=== PATIENT | female | born 1980 | race Caucasian/White ===

== ENCOUNTER → 2020-03-02 11:45 | Outpatient (CLI) | payer OTHER, MEDICAID, SELFPAY ==
[2020-03-02 10:33] VITALS: BMI 25.2
[2020-03-02 12:03] LABS: Absolute Lymphocyte Count 1.51 X10^3/uL (0.83-4.51); Absolute Neutrophil Count 9.5 X10^3/uL (2.0-7.7); Basophil# 0.02 X10^3/uL; Basophil% 0.2 % (0-1); Eosinophil# 0.07 X10^3/uL; Eosinophils% 0.6 % (0-5); Hematocrit 39.9 % (37-47); Hemoglobin 13.8 g/dL (12.0-15.0); Lymphocyte # 1.51 X10^3/ul (4.0); Lymphocyte % 12.9 % (19-41); Mean Corp Hgb Conc 34.6 g/dL (32-36); Mean Corpuscular Hgb 32.4 pg (27.0-32.0); Mean Corpuscular Volume 93.7 fL (81-99); Mean Platelet Vol. 9.9 fl (6.2-12.0); Monocyte# 0.59 X10^3/uL; NRBC Flagged by Analyzer 0 % (0-5); Neutrophil # 9.51 X10^3/uL (2.7-7.7); Platelet Count 258 K/mm3 (150-450); RBC Distribution Width CV 12.2 % (11.6-14.6); RBC Distribution Width SD 42.3 fl (35.1-43.9); Red Blood Count 4.26 M/mm3 (4.2-5.4); White Blood Count 11.7 K/mm3 (4.4-11.0)
[2020-03-02 12:56] LABS: HIV - WCH Non-Reactive (Nonreactive); Hepatitis B Surface Antigen Non-Reactive (Nonreactive); Hepatitis C Antibody Non-Reactive (Nonreactive); Rubella IgG 268.2 IU/mL
[2020-03-02 14:17] LABS: Amphetamine Urine VISTA NEGATIVE (<1000 ng/mL); Barbiturate Urine VISTA NEGATIVE (< 200 ng/mL); Benzodiazepine Urine VISTA NEGATIVE (< 200 ng/mL); Cocaine Urine VISTA NEGATIVE (< 300 ng/mL); Ecstacy Urine VISTA NEGATIVE (< 500 ng/mL); Methadone Urine VISTA NEGATIVE (< 300 ng/mL); PCP Urine VISTA NEGATIVE (< 25 ng/mL); THC Urine VISTA NEGATIVE (< 50 ng/mL); Vista UDS pH Range 7
[2020-03-06 07:44] LABS: Chlamydia By Nucleic Acid AMP Negative (Negative)
[2020-03-06 08:03] LABS: Gonococcus By Nucleic Acid AMP Negative (Negative)
[2020-03-07 04:42] LABS: HPV APTIMA, High Risk Negative (Negative)
[2020-03-08 01:46] LABS: Rapid Plasmin Reagin (RPR) NONREACTIVE (NONREACTIVE)
== END ==
PROVIDERS: PCP Nurse Practitioner Family; Referring Provider Obstetrics & Gynecology; Visit Provider Obstetrics & Gynecology
DX: O09.90 Supervision of high risk pregnancy, unspecified, unspecified trimester (principal); Z3A.00 Weeks of gestation of pregnancy not specified; Z12.4 Encounter for screening for malignant neoplasm of cervix
CPT/HCPCS: 36415; 80307; 85025; 86592; 86703; 86762; 86803; 86850; 86900; 86901; 87086; 87088; 87340; 87491; 87591; 87624; 88175; G0145

== ENCOUNTER → 2020-03-30 11:50 | Outpatient (CLI) | payer OTHER, MEDICAID, SELFPAY ==
[2020-03-30 11:05] VITALS: BMI 26.2
== END ==
PROVIDERS: PCP Nurse Practitioner Family; Referring Provider Obstetrics & Gynecology; Visit Provider Obstetrics & Gynecology
DX: O09.512 Supervision of elderly primigravida, second trimester (principal); Z3A.00 Weeks of gestation of pregnancy not specified
CPT/HCPCS: 36415

== ENCOUNTER → 2020-06-22 10:16 | Outpatient (CLI) | payer OTHER, MEDICAID, SELFPAY ==
[2020-05-24 11:23] VITALS: BMI 29.4
[2020-06-22 10:39] LABS: Absolute Lymphocyte Count 1.58 X10^3/uL (0.83-4.51); Absolute Neutrophil Count 9.2 X10^3/uL (2.0-7.7); Basophil# 0.02 X10^3/uL; Basophil% 0.2 % (0-1); Eosinophil# 0.11 X10^3/uL; Eosinophils% 0.9 % (0-5); Hematocrit 37.1 % (37-47); Hemoglobin 12.6 g/dL (12.0-15.0); Lymphocyte # 1.58 X10^3/ul (4.0); Lymphocyte % 13.3 % (19-41); Mean Corpuscular Hgb 32.6 pg (27.0-32.0); Mean Corpuscular Volume 96.1 fL (81-99); Mean Platelet Vol. 10.5 fl (6.2-12.0); Monocyte# 0.88 X10^3/uL; Monocyte% 7.4 % (0-10); NRBC Flagged by Analyzer 0 % (0-5); Neutrophil # 9.24 X10^3/uL (2.7-7.7); Neutrophil % 77.4 % (47-70); Platelet Count 197 K/mm3 (150-450); RBC Distribution Width CV 12.7 % (11.6-14.6); RBC Distribution Width SD 44.4 fl (35.1-43.9); Red Blood Count 3.86 M/mm3 (4.2-5.4); White Blood Count 11.9 K/mm3 (4.4-11.0)
[2020-06-22 10:54] LABS: Glucose Challenge Gest 1H 50g 81 mg/dL (70-140)
== END ==
PROVIDERS: Obstetrics & Gynecology; Referring Provider Obstetrics & Gynecology; Visit Provider Obstetrics & Gynecology
DX: O09.90 Supervision of high risk pregnancy, unspecified, unspecified trimester (principal); Z3A.00 Weeks of gestation of pregnancy not specified; Z13.1 Encounter for screening for diabetes mellitus
CPT/HCPCS: 36415; 82950; 85025

== ENCOUNTER → 2020-08-15 09:31 | Outpatient (CLI) | payer OTHER, MEDICAID, SELFPAY ==
[2020-08-03 11:02] VITALS: BMI 31.7
--- NOTE | 2020-08-15 09:36 | US_ITS ---
STUDY: SECOND AND THIRD TRIMESTER OBSTETRICAL ULTRASOUND - LIMITED REASON FOR EXAM: Female, 40 years old growth. Advanced maternal age. LMP: 12/10/2019. PRIOR ULTRASOUND: None. TECHNIQUE: Transabdominal TECHNICAL QUALITY: Adequate. FINDINGS: There is a single intrauterine fetus. The fetus is in a cephalic presentation. There is demonstrated cardiac activity with a heart rate of 140 bpm. There is a normal amniotic fluid volume. The largest amniotic fluid pocket measures 3.8 cm. The amniotic fluid index (MARY ANNE) is 8.3 cm. Decreased amniotic fluid. The placenta is anterior in location and is not low lying. There are Grade 3 placental changes. The cervix was not visualized due to the head positioning. BIOMETRY: BPD: 8.9 cm: 35 weeks, 6 days HC: 32.2 cm: 36 weeks, 2 days AC: 32.4 cm: 36 weeks, 2 days FL: 7.2 cm: 35 weeks, 5 days Age by LMP: 35 weeks, 4 days. TOBIAS by LMP: 09/15/2020. age by current US: 36 weeks, 1 days. TOBIAS by current US: 09/11/2020. Estimated weight: 2958 grams, +/- 444 grams, 75 percentile. US/OB Limited With Biometrics IMPRESSION: Single live intrauterine gestation with a mean gestational age of 36 weeks and 1 day. Oligohydramnios. Electronically Signed: Cachorro Chris MD at 14:10 EDT , Service support ,
== END ==
PROVIDERS: Referring Provider Obstetrics & Gynecology; Visit Provider Obstetrics & Gynecology
DX: O09.93 Supervision of high risk pregnancy, unspecified, third trimester (principal); O09.513 Supervision of elderly primigravida, third trimester; Z3A.36 36 weeks gestation of pregnancy
CPT/HCPCS: 76816

== ENCOUNTER → 2020-08-24 08:27 | Outpatient (CLI) | payer OTHER, MEDICAID, SELFPAY ==
[2020-08-15 13:00] VITALS: BMI 26.2
--- NOTE | 2020-08-24 08:29 | US_ITS ---
STUDY: SECOND AND THIRD TRIMESTER OBSTETRICAL ULTRASOUND - LIMITED REASON FOR EXAM: Female, 40 years old MARY ANNE LMP: 12/10/2019. PRIOR ULTRASOUND: Comparison is made with prior study 08/15/2020. TECHNIQUE: Transabdominal TECHNICAL QUALITY: Adequate. FINDINGS: There is a single intrauterine fetus. The fetus is in a cephalic presentation. There is demonstrated cardiac activity with a heart rate of 158 bpm. There is a normal amniotic fluid volume. The largest amniotic fluid pocket measures 2.2 cm. The amniotic fluid index (MARY ANNE) is 5.9 cm. The placenta is anterior in location and is not low lying. There are Grade 3 placental changes. The cervix measures 3.6 cm in length. BIOMETRY: Age by LMP: 36 weeks, 6 days. TOBIAS by LMP: 09/15/2020. US/OB Limited (No Biometrics) IMPRESSION: The largest amniotic fluid pocket measures 2.2 cm. The amniotic fluid index is 5.9 cm. Electronically Signed: Cachorro Chris MD at 11:22 EDT , Service support ,
== END ==
PROVIDERS: Referring Provider Obstetrics & Gynecology; Visit Provider Obstetrics & Gynecology
DX: O28.8 Other abnormal findings on antenatal screening of mother (principal); O09.93 Supervision of high risk pregnancy, unspecified, third trimester; Z3A.36 36 weeks gestation of pregnancy
CPT/HCPCS: 76815; 87077; 87081; 87186

== ENCOUNTER 2020-08-27 15:30 | Inpatient (IN) | payer OTHER, MEDICAID, SELFPAY ==
[2020-08-24 10:40] VITALS: BMI 33.1
[2020-08-27] VITALS (10 sets, daily range): BP systolic 128–144; BP diastolic 72–84; PULSE 87–132; TEMP 37.1–37.6; O2SAT 87–98; BMI 33.5; BMI 34.0
--- NOTE | 2020-08-27 12:38 | US_ITS ---
STUDY: SECOND AND THIRD TRIMESTER OBSTETRICAL ULTRASOUND - LIMITED REASON FOR EXAM: Female, 40 years old borderline MARY ANNE PRIOR ULTRASOUND: 08/24/2020 TECHNICAL QUALITY: Adequate. FINDINGS: There is a single intrauterine fetus. The fetus is in a cephalic presentation. There is demonstrated cardiac activity with a heart rate of 141 bpm. The largest amniotic fluid pocket measures 2.8 cm. The amniotic fluid index (MARY ANNE) is 5.6 cm. The placenta is anterior The cervix measures 4.6 cm in length. Age by LMP: 37 weeks, 2 days. TOBIAS by LMP: 09/15/2020. age by current US: 37 weeks, 2 days. TOBIAS by current US: 09/15/2020. US/OB Limited (No Biometrics) IMPRESSION: Single living intrauterine of 37 weeks 2 days, mean gestational age. The MARY ANNE is 5.6, oligohydramnios. Was 5.9 on the prior exam. Electronically Signed: Kahlil Nobles MD at 13:57 EDT Tel , Service support ,
[2020-08-27] MEDS: 0.9% Saline Lock 10 ML Syringe IV (16:00)
[2020-08-27 16:31] LABS: Absolute Lymphocyte Count 1.36 X10^3/uL (0.83-4.51); Absolute Neutrophil Count 7.8 X10^3/uL (2.0-7.7); Basophil# 0.02 X10^3/uL; Basophil% 0.2 % (0-1); Eosinophil# 0.09 X10^3/uL; Eosinophils% 0.9 % (0-5); Hematocrit 37.9 % (37-47); Hemoglobin 13.1 g/dL (12.0-15.0); Lymphocyte # 1.36 X10^3/ul (4.0); Lymphocyte % 13.6 % (19-41); Mean Corp Hgb Conc 34.6 g/dL (32-36); Mean Corpuscular Hgb 32.5 pg (27.0-32.0); Mean Platelet Vol. 11.2 fl (6.2-12.0); Monocyte# 0.69 X10^3/uL; Monocyte% 6.9 % (0-10); NRBC Flagged by Analyzer 0 % (0-5); Neutrophil # 7.78 X10^3/uL (2.7-7.7); Neutrophil % 77.7 % (47-70); Platelet Count 195 K/mm3 (150-450); RBC Distribution Width CV 12.4 % (11.6-14.6); RBC Distribution Width SD 43.1 fl (35.1-43.9); Red Blood Count 4.03 M/mm3 (4.2-5.4)
[2020-08-27] MEDS: Lactated Ringers 1,000 ML 50 ML IV (16:55)
[2020-08-27] MEDS: miSOPROStol 25 MCG TABLET VAGINAL (17:02)
[2020-08-27] MEDS: 0.9% Normal Saline Single 100 ML IV.SOLN. INTRA-UTER (21:25)
[2020-08-27] MEDS: miSOPROStol 25 MCG TABLET PO (21:58)
[2020-08-27] MEDS: DiphenhydrAMINE 25 MG Capsule 50 MG PO (23:14)
[2020-08-27] MEDS: Acetaminophen 500 MG Tablet PO (23:46)
[2020-08-28] VITALS (46 sets, daily range): BP systolic 90–150; BP diastolic 51–87; PULSE 87–126; TEMP 36.4–37.4; O2SAT 88–98
[2020-08-28] MEDS: miSOPROStol 25 MCG TABLET PO (02:21)
[2020-08-28] MEDS: 0.9% Saline Lock 10 ML Syringe IV (06:55)
[2020-08-28] MEDS: Lactated Ringers 1,000 ML 50 ML IV (07:21)
[2020-08-28] MEDS: Oxytocin 30 units/NS 500 ml 30 UNITS/500 ML IV.SOLN IV (07:21)
--- NOTE | 2020-08-28 10:45 | PCM.HPOB.BLA ---
- Problem List (1) AMA (advanced maternal age) primigravida 35+ Status: Acute Qualifiers: Comment: low risk NIPT. Plan NSTs starting 36w. Need to discuss NSTs at next visit. (2) Gastrointestinal parasites Status: Acute Comment: Reports developed parasite while in [place] a few years ago. Has been undergoing treatment with an herbalist. (3) Oligohydramnios Status: Acute Comment: recommend IOL now with cytotec (4) Positive GBS test Status: Acute Comment: tx with PCN in labor (5) Status: Acute Qualifiers: Comment: declines carrier and AFP, NIPT low risk; NL anatomy (6) Supervision of high risk , antepartum Status: Acute Comment: PRR TOBIAS 09/12/20 girl Spouse: Noam History and Physical Date of Admission: 08/28/20 Intake Vital Signs 08/27/20 Height 5 ft 10 in 08/27/20 Weight: 233 lb 6 oz 08/27/20 BMI 33.5 08/27/20 BP 136/90 H Intake Visit Reasons: MARY ANNE 5.6 Allergies No Known Allergies Allergy (Verified 08/27/20 13:14) Medications promethazine 12.5 mg tablet 12.5 mg PO TID PRN #60 tab 02/06/20 [Rx Confirmed 08/27/20] B-complex with vitamin C 1 tab PO DAILY 02/27/20 [History Confirmed 08/27/20] multivitamin no.47-iron fum 27 mg-folate no.1 1 mg-dha 300 mg capsule cap PO 02/27/20 [History Confirmed 08/27/20] ondansetron HCl 4 mg tablet 4 mg PO Q8H PRN #60 tab 03/02/20 [Rx Confirmed 08/27/20] Last Menstral Period: 12/10/19 PFS PFSH Medical History Constipation (Acute) Diarrhea (Acute) Insomnia (Acute) Chronic GERD (Chronic ~2017) Surgical History No significant past surgical history (Acute) Family History Mother Thyroid disorder Social History (Updated 08/27/20 @ 13:[address] Aracelis Castaneda MD) household members: spouse housing: apartment current occupational status: employed history of recent travel: Yes Smoking Status: Never smoker second hand exposure: No alcohol intake: current details: not while substance use type: does not use caffeine: Yes seatbelt use: always do you feel safe at home: Yes additional social history: - Noam Pregancy History 1 Elective abortions Hx Para Spontaneous abortions Hx # Term Pregnancies Ectopic pregnancies Hx # Pregnancies Multiple births # of living children HPI MARY ANNE 5.6: Details: ANKIT MONROE is a 40 year old who presents for fu of MARY ANNE which has decreased, and now she is 37 weeks it is recommended for IOL secondary to oligohydramnios. mary anne is 5.6 decreased from 6 last week OB Visit TOBIAS Calculator Estimated Delivery Date Method Current WG Current Estimate 09/15/20 LMP (Certain) 37w 2d Other Estimates 09/15/20 Ultrasound #1 37w 2d Expected Delivery Route/Plan Labor Preferences- CB/BF classes: done labor support person: noam labor intervention preferences: minimal intervention, saline lock, IA pain management options preferred: minimal intervention, shower cut cord/dad catch: maybe, difficult with blood : yes PP control planned: NFP discussed possible routes of delivery and associated risks: [] special requests: [] Specific Issue/Plans flu vaccine: 03/30 tdap vaccine: got in first trimester rhogam: na LARC form signed: declined movement and labor precautions reviewed. Problem list reviewed and updated with the most current plan of care details and appropriate orders placed. Relevant counseling for the gestational age provided. Continue routine care and follow up unless otherwise noted in visit notes/problem list details Initial Weight: Not Recorded Date EGA Weight BP Urine Prot Glucose FHR FuHt Pres Dilation Effaced St Visit Note 03/02/20 11w 6d 175 lb 8 oz 114/84 165 GP - CRL consistent with LMP. 03/30/20 15w 6d 183 lb 110/70 145 GP - no cramping or bleeding. Plan NIPT today. Flu shot today. Discussed medications for constipation. 04/26/20 19w 5d 192 lb 2 oz 120/86 Negative Negative 140 GP - no cramping or bleeding. Not yet feeling movement. Anatomy scan next week. 05/24/20 23w 5d 205 lb 4 oz 118/72 140 24 GP - no ctx, LOF, VB, DFM. Anatomy scan normal. GCT next visit. 06/22/20 27w 6d 213 lb 136/80 145 28 SM- no vb lof good fm no regular ctx SM- no vb lof good fm no regular ctx. discussed preferences with patient, prefers minimal intervention. 07/06/20 29w 6d 219 lb 134/72 Negative Negative 140 31 SM- no vb lof good fm no regular ctx 07/20/20 31w 6d 219 lb 2 oz 112/70 Negative Negative 135 31 GP - no LOF, VB, DFM, ctx. LARC form signed. 08/03/20 33w 6d 221 lb 124/66 Negative Negative 135 33 Sm- no vb lof good fm no regular ctx. co hip pain. planning travel at 35 weeks 08/15/20 35w 4d 134/88 Negative Negative 140 MH-NO VB, LOF. Good FM. Reactive NST. 08/24/20 36w 6d 231 lb Negative Negative 140 37 GP - no LOF, VB, DFM, ctx. MARY ANNE borderline. Plan repeat on Thursday. 08/27/20 37w 2d 233 lb 6 oz 136/90 130 37 SM- no vb lof good fm no regular ctx Diagnostics Diagnostics Diagnostics Glucose 1 Hr 50 gm 81 mg/dL (70-140) 06/22/20 Hgb 12.6 g/dL (12.0-15.0) 06/22/20 Hct 37.1 % (37-47) 06/22/20 Details: HIV: Urine Culture: Sequential Screen: NIPT Screen: ROS Const Reports system reviewed and no additional complaints, except as docu Card Reports system reviewed and no additional complaints, except as docu Resp Reports system reviewed and no additional complaints, except as docu GI Reports system reviewed and no additional complaints, except as docu, Reports nausea Reports system reviewed and no additional complaints, except as docu Musc Reports system reviewed and no additional complaints, except as docu Exam Const General: cooperative, healthy appearing, comfortable, anxious [facility] Head: normal to inspection Nose: external nose normal Face and sinus: normal facial exam Neck Neck: normal visual inspection, full ROM, no lymphadenopathy Thyroid: thyroid normal Chest Chest palpation & inspection: normal inspection of the chest Resp Effort & Inspection: normal respiratory effort GI Inspection: normal to inspection Palpation: soft, other (gravid uterus) Other: infant vertex and appropriate size for gestational age Other: Cervical Exam: Extrem General: pedal edema Assessment & Plan Problems 1. Positive GBS test B95.1 tx with PCN in labor 2. Gastrointestinal parasites B82.9 Reports developed parasite while in [place] a few years ago. Has been undergoing treatment with an herbalist. 3. AMA (advanced maternal age) primigravida 35+ O09.519 low risk NIPT. Plan NSTs starting 36w. Need to discuss NSTs at next visit. 4. Supervision of high risk , antepartum O PRR TOBIAS 09/12/20 girl Spouse: Noam 5. 37 weeks gestation of Z3A.37 declines carrier and AFP, NIPT low risk; NL anatomy 6. Oligohydramnios O41.00X0 recommend IOL now with cytotec Plan Patient presents IOL, plan management for with iol with cytotec, discussed risks of hyperstimulation- will plan on 25mcg IOL. Pain management: prefers minimal intervention. GBS pos- PCN. Management of any complications: oligo I have reviewed the [facility] and made any clinically relevant updates. Coding Level of Care Code OB Routine Diagnoses Positive GBS test B95.1 Gastrointestinal parasites B82.9 AMA (advanced maternal age) primigravida 35+ O09.519 Supervision of high risk , antepartum O09.90 37 weeks gestation of Z3A.37 ??Weeks of gestation: 37 weeks Oligohydramnios O41.00X0
--- NOTE | 2020-08-28 10:45 | PCM.PN.BLA ---
Progress Note fht several intermittent vartiables overall reasuring 5 cm dilated, continue pit per protocol, fb out STROKE Vital Signs/Narrative: Vital Signs Temp Pulse BP 08/28/20 10:32 88 142/86 H 08/28/20 09:52 95 129/65 H 08/28/20 09:14 100 127/61 H 08/28/20 08:33 96 134/75 H 08/28/20 08:05 105 H 128/62 H 08/28/20 07:25 98.2 F 104 H 124/60 H
[2020-08-28] MEDS: Ondansetron 4 MG/2 ML Vial IV (16:10)
[2020-08-28] MEDS: proCHLORPERazine 10 MG/2 ML Vial IV (19:51)
[2020-08-28] MEDS: Lactated Ringers 500 ML 999 ML IV ×2 (19:51→21:20)
[2020-08-28] MEDS: fentaNYL 100 MCG/2 ML Ampul IV (20:23)
[2020-08-28] MEDS: fentaNYL-bupivacaine (epidural) 100 ML BAG EPIDURAL (22:17)
[2020-08-28] MEDS: Lactated Ringers 1,000 ML 200 ML IV (23:15)
[2020-08-29] VITALS (16 sets, daily range): BP systolic 108–126; BP diastolic 56–77; PULSE 89–117; RESP 16–18; TEMP 36.3–37.3; O2SAT 96
[2020-08-29] MEDS: Oxytocin 30 units/NS 500 ml 30 UNITS/500 ML IV.SOLN 334 UNITS IV (01:05)
--- NOTE | 2020-08-29 01:34 | OP.PCM_ITS ---
Problem List (1) AMA (advanced maternal age) primigravida 35+ Status: Acute Qualifiers: Comment: low risk NIPT. Plan NSTs starting 36w. Need to discuss NSTs at next visit. (2) Gastrointestinal parasites Status: Acute Comment: Reports developed parasite while in [place] a few years ago. Has been undergoing treatment with an herbalist. (3) Oligohydramnios Status: Acute Comment: recommend IOL now with cytotec (4) Positive GBS test Status: Acute Comment: tx with PCN in labor (5) Status: Acute Qualifiers: Comment: declines carrier and AFP, NIPT low risk; NL anatomy (6) Supervision of high risk , antepartum Status: Acute Comment: PRR TOBIAS 09/12/20 girl Spouse: Oziel Vaginal Delivery Maternal Presentation: Medically Indicated Induction iol oligo Method of Induction: Pitocin, Talbot Bulb, Cytotec Amniotic Membrane Rupture Type: Artificial Amniotic Fluid Description: Clear Final TOBIAS: 09/15/20 Gestational age: 37 Weeks and 4 Days Date of Procedure: 08/29/20 Pre-Operative Diagnosis: iol oligo Post-Operative Diagnosis: same Surgery/ Procedure Performed: Spontaneous Vaginal Delivery Type of Anesthesia: Epidural Description of Procedure: Patient began pushing and delivered the head in the RADHA presentation. The head was delivered atraumatically . The anterior and posterior shoulders delivered without complication followed by the rest of the infant and the was placed on the maternal abdomen. Delayed cord clamping was employed for approximately 60 seconds. Cord was clamped and cut and gentle traction was applied to the cord and the placenta delivered spontaneously immediately following it was noted to be intact with three-vessel cord. The perineum and vagina were inspected and noted to have a small first-degree right vaginal laceration that was repaired in the usual fashion with 3-0 Vicryl Rapide. EBL was 100 cc. Patient and tolerated delivery well. Presentation: RADHA Placental Delivery Description: Spontaneous Placenta Disposition: [facility] Cord Vessel Description: 3 Vessels Estimated Blood Loss: 100 Infant A gender: Female Episiotomy Description: None Laceration: Vaginal Extension/lac, 1st degree Medications given after delivery: IV Pitocin Complications: None Multi Select Codes - Urinary/Genital Urinary/Genital CPT Codes: 96095 Vaginal Delivery [facility]
[2020-08-29] MEDS: Senna/Docusate Sodium 1 Tablet PO (08:45)
[2020-08-30 02:17] VITALS: BP 122/79; PULSE 80; RESP 18
--- NOTE | 2020-08-30 08:14 | PCM.PN.OB ---
Patient Problems: Active and Suspected Problems (Last Reviewed 08/27/20 @ 13:14 by Fatimah Yang) Oligohydramnios (Acute) recommend IOL now with cytotec Positive GBS test (Acute) tx with PCN in labor Gastrointestinal parasites (Acute) Reports developed parasite while in [place] a few years ago. Has been undergoing treatment with an herbalist. AMA (advanced maternal age) primigravida 35+ (Acute) low risk NIPT. Plan NSTs starting 36w. Need to discuss NSTs at next visit. Supervision of high risk , antepartum (Acute) PRR TOBIAS 09/12/20 girl Spouse: Oziel (Acute) declines carrier and AFP, NIPT low risk; NL anatomy Subjective: Patient doing well without complaints. Tolerating PO. Ambulating and voiding without difficulty. feeding well. Denies chest pain, shortness of breath, calf pain/swelling, fevers, chills, lightheadedness. - Physical Exam Vitals/I&O's: Vital Signs Temp Pulse Resp BP Pulse Ox 97.7 F L 80 18 122/79 H 96 08/29/20 20:13 08/30/20 02:17 08/30/20 02:17 08/30/20 02:17 08/29/20 03:28 Oxygen Delivery Method Room Air Weight: 230 lb 13.184 oz Body Mass Index (BMI) 34.0 Intake and Output for Last 24 Hours 08/28/20 08/29/20 08/30/20 23:59 23:59 23:59 Intake Total 8871.82 / 8871.82 890.13 / 890.13 Output Total 5150 / 5150 1100 / 1100 Balance 3721.82 / 3721.82 -209.87 / -209.87 General: Alert, Oriented x3 Microbiology Past 72 Hours 08/27/20 16:00 Mucosa - Nose SARS-CoV-2 Antigen (Rapid) - Final Current Medications Acetaminophen (Acetaminophen 500 Mg Tablet) 1,000 mg PO Q8H PRN PRN PRN Reason: Pain Score 1-3 Bisacodyl (Bisacodyl 10 Mg Suppository) 10 mg RC UD PRN PRN Reason: If no BM Dibucaine (Dibucaine 30 Gm Tube) 1 applic TOPICAL TID PRN PRN; Protocol PRN Reason: Discomfort Hydrocortisone (Hydrocortisone 2.5% Crm) 1 applic TOPICAL TID PRN PRN; Protocol PRN Reason: Discomfort Methylergonovine Maleate (Methylergonovine 0.2 Mg/Ml Ampul) 0.2 mg IM X1 PRN PRN Reason: Excess bleeding/uterine atony Naproxen (Naproxen 250 Mg Tablet) 500 mg PO Q8H PRN PRN PRN Reason: Pain Score 1-3 Ondansetron HCl (Ondansetron 4 Mg/2 Ml Vial) 4 mg IV Q4H PRN PRN PRN Reason: Nausea Oxycodone HCl (Oxycodone 5 Mg Tablet) 5 - 10 mg PO Q4H PRN PRN PRN Reason: Pain Score 4-10 Senna/Docusate Sodium (Senna/Docusate Sodium 1 Tablet) 1 - 2 tablet PO DAILY PRN PRN PRN Reason: Constipation Last Admin: 08/29/20 08:45 Dose: 2 tablet Documented by: Simethicone (Simethicone 80 Mg Tablet) 80 mg PO PCHS PRN PRN Reason: Indigestion/Stomach pain Sodium Chloride (0.9% Saline Lock 10 Ml Syringe) 5 - 15 ml IV UD PRN PRN Reason: SALINE FLUSH Medical Necessity - Tobacco Use Smoking Status: Never smoker Assessment/Plan All Active Problems (Last Reviewed 08/27/20 @ 13:14 by Fatimah Yang) Oligohydramnios (Acute) Positive GBS test (Acute) Gastrointestinal parasites (Acute) AMA (advanced maternal age) primigravida 35+ (Acute) Supervision of high risk , antepartum (Acute) (Acute) MARY ANNE (amniotic fluid index) borderline low (Resolved) s/p PPD # 1 1. routine post delivery care 2. breast feeding- support given 3. rh positive 4. rubella immune
[2020-08-30 09:23] VITALS: BP 112/64; PULSE 94; RESP 16; TEMP 37.1
--- NOTE | 2020-08-30 09:29 | DCINST_ITS ---
Discharge Diet: No Restrictions Discharge Activity: Return to Normal Activity, May not drive while taking narcotic pain medications., May Shower May resume sexual activity in: 4-6 weeks Call your doctor if your incision/area has: Continuous Slow Oozing, Sudden Increased Bleeding, Increased Pain/ Swelling, Increased Redness, Foul Smelling Discharge Additional Instructions: If you experience any of the following, contact your healthcare provider. * Bleeding that soaks a pad every hour for 2 hours * Fever 100.4 or higher * Unrelieved incision or abdominal pain * Swelling, redness, discharge or bleeding from your incision or episiotomy site * Your incision begins to separate * Problems urinating (including inability to urinate or burning while urinating). * Visual changes * Severe headache * Flu-like symptoms * Pain or redness in one of both of your breasts * Pain, warmth, tenderness or swelling in your legs, especially the calf area * Frequent nausea and vomiting * Symptoms of depression or anxiety If you experience any of the following, call 911 or go to the nearest Emergency Room. * Chest pain * Problems breathing * Seizure activity * Partial or complete paralysis of a body part, slurred speech, weakness or drooping of the face, or a sudden inability to walk or hold your balance Allergies/Adverse Reactions: Allergies No Known Allergies Allergy (Verified 08/27/20 15:52) Medications to take at Discharge multivitamin no.47-iron fum 27 mg-folate no.1 1 mg-dha 300 mg capsule cap PO 02/27/20 Docusate Sodium [Colace Clear] 50 mg PO 08/27/20 Doxylamine Succinate [Unisom Sleep Aid] 25 mg PO 08/27/20 Famotidine [Pepcid AC] 20 mg PO 08/27/20 Magnesium Citrate 325 mg 08/27/20 Psyllium Husk/Aspartame [Metamucil Powder] 30 mg 08/27/20 Vitamin B Complex [B Complex] PO 08/27/20 Naproxen [Naprosyn] 250 - 500 mg PO Q8H PRN PRN #30 tab 08/30/20 The following prescriptions were given: Naproxen [Naprosyn] 250 - 500 mg PO Q8H PRN PRN #30 tab PRN Reason: MILD PAIN Transmission Status: Received by [facility] Please Follow Up With: Aracelis Castaneda MD - [phone] When: Call to make an appointment with your doctor in 6 weeks. If you had elevated Blood pressure or 4th degree laceration you will need to be seen in 2 weeks. Primary Care Physician: Care Physician,No Primary [Primary Care Provider] - Test Results: Test results from this visit will be discussed in further detail at your follow- up appointment, if applicable.
== END 2020-08-30 09:55 | disposition home or self-care (01) | DRG 806 ==
LOC: WP 15:34
PROVIDERS: Admitting Provider Obstetrics & Gynecology; Referring Provider Obstetrics & Gynecology; Visit Provider Obstetrics & Gynecology
DX: O41.03X0 Oligohydramnios, third trimester, not applicable or unspecified (principal); O98.82 Other maternal infectious and parasitic diseases complicating childbirth; Z37.0 Single live birth; O36.8330 Maternal care for abnormalities of the fetal heart rate or rhythm, third trimester, not applicable or unspecified; B82.9 Intestinal parasitism, unspecified; O99.824 Streptococcus B carrier state complicating childbirth; O70.0 First degree perineal laceration during delivery; Z3A.37 37 weeks gestation of pregnancy; O99.62 Diseases of the digestive system complicating childbirth; K21.9 Gastro-esophageal reflux disease without esophagitis; Z3A.01 Less than 8 weeks gestation of pregnancy
CPT/HCPCS: 59025; 59050; 76815; 85025; 86850; 86900; 86901; 87426; 99218; J7120; A4216; G0378; J2405

== ENCOUNTER → 2020-09-16 17:04 | Outpatient (CLI) | payer OTHER, MEDICAID, SELFPAY ==
[2020-08-27 16:13] VITALS: BMI 34.0
== END ==
PROVIDERS: Referring Provider Obstetrics & Gynecology; Visit Provider Obstetrics & Gynecology
DX: N64.4 Mastodynia (principal)
CPT/HCPCS: 96158

== ENCOUNTER → 2020-10-04 09:21 | Outpatient (CLI) | payer OTHER, MEDICAID, SELFPAY ==
[2020-08-27 16:13] VITALS: BMI 34.0
[2020-10-07 03:06] LABS: Red Blood Cell Count Test/G6PD 4.53 x10E6/uL (3.77-5.28)
[2020-10-07 07:54] LABS: G6PD Quant Test 277 (127-427)
== END ==
DX: Z71.84 Encounter for health counseling related to travel (principal)
CPT/HCPCS: 36415; 82955